=== PATIENT | female | born 1960 | race Caucasian/White ===

== ENCOUNTER 2018-03-19 08:28 | Emergency (ER) | payer MEDICAID ==
[~2018-03-19] VITALS: Ht 154.9 cm; Wt 65.0 kg
[2018-03-19] MEDS ORDERED: IBUPROFEN 600MG TABLET PO ONE (09:00)
[2018-03-19 11:09] VITALS: BP 112/67
== END 2018-03-19 11:11 | disposition home or self-care (01) ==
LOC: ER 08:28
DX: R07.89 Other chest pain (principal); R06.02 Shortness of breath; E78.00 Pure hypercholesterolemia, unspecified; V89.2XXA Person injured in unspecified motor-vehicle accident, traffic, initial encounter; Y93.89 Activity, other specified; Y92.89 Other specified places as the place of occurrence of the external cause; Y99.8 Other external cause status
CPT/HCPCS: 71045; 93005; 99284